=== PATIENT | male | born 1945 | race Caucasian/White ===

== ENCOUNTER 2024-01-07 13:10 | Inpatient (IN) | payer OTHER ==
[2024-01-07] MEDS: SODIUM CHLORIDE 0.9% 500 ML INFUS.BAG IV ONE (14:35)
[2024-01-07 14:46] LABS: BASO % 1.3 % (0-2.0); EOS % 4.1 % (0-4.5); HEMATOCRIT 34.7 % (35.4-49); HEMOGLOBIN 11.6 GM/dL (11.7-16.9); LYMPH % 10.4 % (8-40); MCH 31.6 pg (25.7-33.7); MCHC 33.4 g/dl (32.0-35.9); MEAN CELL VOLUME 94.7 fl (80-96); MEAN PLT VOLUME 9.1 fl (7.5-11.1); MONO % 8.9 % (3.8-10.2); NEUT % 75.3 % (42.8-82.8); PLATELET COUNT 203 10^3/uL (134-434); RBC 3.66 M/mm3 (4.00-5.60); RDW 16.2 % (11.9-15.9); WHITE BLOOD COUNT 7.1 K/mm3 (4.0-10.0)
[2024-01-07 14:52] LABS: INR 0.96 (0.83-1.09); PROTHROMBIN TIME (PATIENT) 10.9 SEC (9.7-13.0)
[2024-01-07 14:55] LABS: ACTIVATED PTT 28.4 SECONDS (25.2-36.5)
[2024-01-07 14:58] LABS: POTASSIUM 3.2 mmol/L (3.5-5.1)
[2024-01-07 15:00] LABS: ALBUMIN 3.4 g/dl (3.4-5.0); CALCIUM 9.1 mg/dL (8.5-10.1)
[2024-01-07 15:01] LABS: BLOOD UREA NITROGEN 63.4 mg/dL (7-18); MAGNESIUM 2.1 mg/dL (1.8-2.4)
[2024-01-07 15:03] LABS: CREATININE 3.4 mg/dL (0.55-1.3)
[2024-01-07 15:05] LABS: TOT PROT 6.4 g/dl (6.4-8.2)
[2024-01-07 15:05] LABS: VENOUS BASE EXCESS 14.4 mmol/L (-2-2); VENOUS O2 SATURATION 31.8 % (70-80); VENOUS PCO2 52.1 mmHg (38-52); VENOUS PH 7.5 (7.310-7.410)
[2024-01-07 15:07] LABS: BILIRUBIN,TOTAL 0.9 mg/dL (0.2-1)
[2024-01-07 15:09] LABS: N-TERMINAL BNP 351.6 pg/ml (5-450)
[2024-01-07 15:58] LABS: URINE APPEARANCE CLEAR; URINE BILIRUBIN NEGATIVE (NEGATIVE); URINE COLOR YELLOW; URINE GLUCOSE (UA) NEGATIVE (NEGATIVE); URINE KETONE NEGATIVE (NEGATIVE); URINE LEUK ESTERASE NEGATIVE (NEGATIVE); URINE NITRITE NEGATIVE (NEGATIVE); URINE PROTEIN TRACE (NEGATIVE)
[2024-01-07] MEDS ORDERED: POTASSIUM CHLORIDE ORAL LIQUID 20 MEQ/15 ML ONE (17:55)
[2024-01-07] MEDS: POTASSIUM CHLORIDE ORAL LIQUID 20 MEQ/15 ML PO ONE (17:56)
[2024-01-07] MEDS: LACTATED RINGERS SOLUTION 1000 ML INFUS.BAG IV ONE (18:05)
[2024-01-07] MEDS ORDERED: PANTOPRAZOLE 40 MG TABLET PO ONE (20:24)
[2024-01-07] MEDS: LACTATED RINGERS SOLUTION 1,000 ML/1,000 ML INFUS.BAG IV SCH (20:24)
[2024-01-07] MEDS: PANTOPRAZOLE 40 MG TABLET PO SCH (20:26)
[2024-01-07] MEDS ORDERED: GABAPENTIN 100 MG CAPSULE ONE (22:02)
[2024-01-07] MEDS ORDERED: HEPARIN NA (PORCINE) 5,000 UNITS/ML 1ML VIAL ONE (22:02)
[2024-01-07] MEDS: GABAPENTIN 100 MG CAPSULE PO SCH (22:08)
[2024-01-07] MEDS: HEPARIN NA (PORCINE) 5,000 UNITS/ML 1ML VIAL SQ SCH (22:08)
[2024-01-07] MEDS ORDERED: MELATONIN 5 MG TABLETS ONE (22:09)
[2024-01-07] MEDS: MELATONIN 5 MG TABLETS PO PRN (22:10)
[2024-01-08] MEDS ORDERED: MAG HYDROX/AL HYDROX/SIMETH 30 ML UNIT-DOSE CUP ONE ×2 (00:24→05:43)
[2024-01-08] MEDS: MAG HYDROX/AL HYDROX/SIMETH -MYLANTA- ORAL SUSPENSION PO SCH (00:29)
[2024-01-08] MEDS ORDERED: GABAPENTIN 100 MG CAPSULE ONE (05:43)
[2024-01-08 07:05] LABS: BASO % 1.5 % (0-2.0); EOS % 8.9 % (0-4.5); HEMATOCRIT 32.8 % (35.4-49); LYMPH % 15.7 % (8-40); MCH 32.4 pg (25.7-33.7); MCHC 33.5 g/dl (32.0-35.9); MEAN CELL VOLUME 96.7 fl (80-96); MEAN PLT VOLUME 9.2 fl (7.5-11.1); NEUT % 64.9 % (42.8-82.8); PLATELET COUNT 166 10^3/uL (134-434); RBC 3.39 M/mm3 (4.00-5.60); RDW 16.6 % (11.9-15.9); WHITE BLOOD COUNT 5.8 K/mm3 (4.0-10.0)
[2024-01-08 07:24] LABS: POTASSIUM 3.3 mmol/L (3.5-5.1)
[2024-01-08 07:36] LABS: CALCIUM 8.2 mg/dL (8.5-10.1)
[2024-01-08 07:37] LABS: BLOOD UREA NITROGEN 47.7 mg/dL (7-18)
[2024-01-08 07:38] LABS: CREATININE 1.9 mg/dL (0.55-1.3)
[2024-01-08] MEDS ORDERED: PANTOPRAZOLE 40 MG TABLET PO ONE (11:38)
[2024-01-08] MEDS ORDERED: POTASSIUM CHLORIDE ORAL LIQUID 20 MEQ/15 ML ONE (11:39)
[2024-01-08] MEDS: POTASSIUM CHLORIDE ORAL LIQUID 20 MEQ/15 ML PO ONE (11:45)
[2024-01-08] MEDS: MEMANTINE HCL 10 MG TABLET (FP) PO SCH (11:45)
[2024-01-08] MEDS: OLANZapine 2.5 MG TABLET PO SCH (11:45)
[2024-01-08] MEDS: POTASSIUM CHLORIDE 10 MEQ in SODIUM CHLORIDE 0.45% 1,000 ML IV SCH (13:21)
[2024-01-08] MEDS: MAG HYDROX/AL HYDROX/SIMETH 30 ML UNIT-DOSE CUP PO SCH (18:11)
[2024-01-09] MEDS: HALOPERIDOL LACTATE 5 MG/ML IM ONE ×2 (01:15→01:49)
[2024-01-09 07:39] LABS: HEMATOCRIT 35.3 % (35.4-49); HEMOGLOBIN 11.8 GM/dL (11.7-16.9); MCH 32.7 pg (25.7-33.7); MCHC 33.5 g/dl (32.0-35.9); MEAN CELL VOLUME 97.4 fl (80-96); MEAN PLT VOLUME 9.4 fl (7.5-11.1); PLATELET COUNT 174 10^3/uL (134-434); RBC 3.62 M/mm3 (4.00-5.60); RDW 15.9 % (11.9-15.9); WHITE BLOOD COUNT 5.7 K/mm3 (4.0-10.0)
[2024-01-09 08:04] LABS: CALCIUM 8.5 mg/dL (8.5-10.1)
[2024-01-09 08:05] LABS: ALBUMIN 3.3 g/dl (3.4-5.0); BLOOD UREA NITROGEN 27.8 mg/dL (7-18)
[2024-01-09 08:08] LABS: CREATININE 1.2 mg/dL (0.55-1.3)
[2024-01-09 08:09] LABS: BILIRUBIN,TOTAL 0.6 mg/dL (0.2-1); TOT PROT 6.3 g/dl (6.4-8.2)
[2024-01-09] MEDS: LISINOPRIL 10 MG TABLET PO SCH (10:38)
[2024-01-09] MEDS: D5-1/2NS+10 MEQ KCL - 10 MEQ/1,000 ML INFUS.BAG IV SCH (18:16)
[2024-01-09] MEDS: LABETALOL HCL 20 MG/4 ML VIAL IVPUSH ONE (22:16)
[2024-01-10 07:25] LABS: HEMATOCRIT 35.2 % (35.4-49); HEMOGLOBIN 11.8 GM/dL (11.7-16.9); MCH 32.5 pg (25.7-33.7); MCHC 33.6 g/dl (32.0-35.9); MEAN CELL VOLUME 96.9 fl (80-96); MEAN PLT VOLUME 9.3 fl (7.5-11.1); PLATELET COUNT 193 10^3/uL (134-434); RBC 3.64 M/mm3 (4.00-5.60); RDW 16.2 % (11.9-15.9); WHITE BLOOD COUNT 6.4 K/mm3 (4.0-10.0)
[2024-01-10 07:53] LABS: POTASSIUM 4.5 mmol/L (3.5-5.1)
[2024-01-10 08:07] LABS: CALCIUM 9.3 mg/dL (8.5-10.1)
[2024-01-10 08:08] LABS: BLOOD UREA NITROGEN 19.3 mg/dL (7-18)
[2024-01-10 15:02] LABS: ARTERIAL BLD GAS O2 SATURATION 96.7 % (95-98); ARTERIAL BLOOD GAS BASE EXCESS -0.9 mmol/L (-2-2); ARTERIAL BLOOD GAS PO2 87.9 mmHg (80-100); ARTERIAL BLOOD GAS pH 7.402 (7.350-7.450)
[2024-01-10] MEDS: OLANZapine 2.5 MG TABLET PO SCH (21:04)
[2024-01-11 07:31] LABS: HEMATOCRIT 30.9 % (35.4-49); HEMOGLOBIN 10.5 GM/dL (11.7-16.9); MCH 32.9 pg (25.7-33.7); MEAN CELL VOLUME 96.9 fl (80-96); MEAN PLT VOLUME 9.4 fl (7.5-11.1); PLATELET COUNT 175 10^3/uL (134-434); RBC 3.19 M/mm3 (4.00-5.60); RDW 16.3 % (11.9-15.9); WHITE BLOOD COUNT 6.3 K/mm3 (4.0-10.0)
[2024-01-11 07:54] LABS: ALBUMIN 2.8 g/dl (3.4-5.0); CALCIUM 8.6 mg/dL (8.5-10.1)
[2024-01-11 07:55] LABS: BLOOD UREA NITROGEN 22.2 mg/dL (7-18)
[2024-01-11 07:57] LABS: CREATININE 1.5 mg/dL (0.55-1.3)
[2024-01-11 07:59] LABS: BILIRUBIN,TOTAL 0.4 mg/dL (0.2-1); TOT PROT 5.5 g/dl (6.4-8.2)
[2024-01-11] MEDS: ENOXAPARIN NA (PORCINE) 40 MG/0.4 ML DISP.SYRIN SQ SCH (11:05)
[2024-01-11] MEDS: SODIUM CHLORIDE 0.45% 1,000 ML IV SCH (13:20)
[2024-01-12 11:59] LABS: HEMATOCRIT 32.6 % (35.4-49); HEMOGLOBIN 11.1 GM/dL (11.7-16.9); MCH 33.6 pg (25.7-33.7); MCHC 34.2 g/dl (32.0-35.9); MEAN CELL VOLUME 98.1 fl (80-96); PLATELET COUNT 180 10^3/uL (134-434); RBC 3.32 M/mm3 (4.00-5.60); RDW 16.2 % (11.9-15.9); WHITE BLOOD COUNT 7.4 K/mm3 (4.0-10.0)
[2024-01-12 12:20] LABS: POTASSIUM 5.4 mmol/L (3.5-5.1)
[2024-01-12 12:26] LABS: BLOOD UREA NITROGEN 20.1 mg/dL (7-18); CREATININE 1.3 mg/dL (0.55-1.3)
[2024-01-12 12:27] LABS: MAGNESIUM 2.4 mg/dL (1.8-2.4)
[2024-01-12 12:28] LABS: CALCIUM 8.7 mg/dL (8.5-10.1)
[2024-01-12 12:30] LABS: PHOSPHOROUS 1.2 mg/dL (2.5-4.9)
[2024-01-12] MEDS: GABAPENTIN 100 MG CAPSULE PO SCH (15:32)
[2024-01-12] MEDS: LABETALOL HCL 5 MG/1 ML (100MG/20 ML VIAL) IVPUSH ONE ×2 (15:34→15:35)
[2024-01-12] MEDS ORDERED: MAG HYDROX/AL HYDROX/SIMETH 30 ML UNIT-DOSE CUP PO SCH (18:00)
[2024-01-12] MEDS: OLANZapine 2.5 MG TABLET PO SCH (22:53)
[2024-01-12] MEDS: MELATONIN 5 MG TABLETS PO PRN (22:53)
[2024-01-13 10:12] LABS: HEMATOCRIT 29.1 % (35.4-49); HEMOGLOBIN 9.9 GM/dL (11.7-16.9); MCH 32.9 pg (25.7-33.7); MEAN CELL VOLUME 96.6 fl (80-96); MEAN PLT VOLUME 8.9 fl (7.5-11.1); PLATELET COUNT 183 10^3/uL (134-434); RBC 3.02 M/mm3 (4.00-5.60); RDW 16.3 % (11.9-15.9); WHITE BLOOD COUNT 6.9 K/mm3 (4.0-10.0)
[2024-01-13 10:36] LABS: POTASSIUM 5.2 mmol/L (3.5-5.1)
[2024-01-13 10:37] LABS: CALCIUM 8.8 mg/dL (8.5-10.1)
[2024-01-13 10:38] LABS: BLOOD UREA NITROGEN 24.6 mg/dL (7-18)
[2024-01-13 10:41] LABS: CREATININE 1.3 mg/dL (0.55-1.3); PHOSPHOROUS 1.7 mg/dL (2.5-4.9)
[2024-01-13] MEDS: LISINOPRIL 10 MG TABLET PO SCH (11:07)
[2024-01-13] MEDS: MEMANTINE HCL 10 MG TABLET (FP) PO SCH (11:07)
[2024-01-13] MEDS: ENOXAPARIN NA (PORCINE) 40 MG/0.4 ML DISP.SYRIN SQ SCH (11:07)
[2024-01-13] MEDS: PANTOPRAZOLE 40 MG TABLET PO SCH (11:07)
[2024-01-14 08:28] LABS: HEMATOCRIT 31.8 % (35.4-49); HEMOGLOBIN 10.6 GM/dL (11.7-16.9); MCH 32.1 pg (25.7-33.7); MCHC 33.4 g/dl (32.0-35.9); MEAN CELL VOLUME 96.2 fl (80-96); PLATELET COUNT 189 10^3/uL (134-434); RDW 16.6 % (11.9-15.9); WHITE BLOOD COUNT 5.4 K/mm3 (4.0-10.0)
[2024-01-14 08:31] LABS: BLOOD UREA NITROGEN 28.6 mg/dL (7-18)
[2024-01-14 08:34] LABS: CREATININE 1.3 mg/dL (0.55-1.3)
[2024-01-14 09:27] LABS: ANISOCYTOSIS 0; MACROCYTOSIS 0
[2024-01-14] MEDS: HALOPERIDOL LACTATE 5 MG/ML IM ONE ×2 (09:58→20:27)
[2024-01-14] MEDS ORDERED: ESCITALOPRAM OXALATE 10 MG TABLET ONE (11:10)
[2024-01-14] MEDS: ESCITALOPRAM OXALATE 20 MG TABLET PO SCH (11:19)
[2024-01-14] MEDS: SODIUM ZIRCONIUM CYCLOSILICATE (LOKELMA) 5 GM PACKET PO SCH (14:29)
[2024-01-14] MEDS: OLANZapine 5 MG TABLET PO SCH (21:05)
[2024-01-14] MEDS: MELATONIN 5 MG TABLETS PO SCH (21:05)
[2024-01-15] MEDS ORDERED: ESCITALOPRAM OXALATE 10 MG TABLET ONE (08:58)
[2024-01-15 11:03] LABS: HEMATOCRIT 29.9 % (35.4-49); HEMOGLOBIN 10.1 GM/dL (11.7-16.9); MCH 32.3 pg (25.7-33.7); MCHC 33.6 g/dl (32.0-35.9); MEAN CELL VOLUME 96.2 fl (80-96); MEAN PLT VOLUME 8.9 fl (7.5-11.1); PLATELET COUNT 192 10^3/uL (134-434); RBC 3.11 M/mm3 (4.00-5.60); RDW 16.3 % (11.9-15.9)
[2024-01-15 11:30] LABS: POTASSIUM 5.2 mmol/L (3.5-5.1)
[2024-01-15 11:34] LABS: CALCIUM 8.5 mg/dL (8.5-10.1)
[2024-01-15 11:35] LABS: BLOOD UREA NITROGEN 35.2 mg/dL (7-18); MAGNESIUM 1.7 mg/dL (1.8-2.4)
[2024-01-15 11:38] LABS: CREATININE 1.3 mg/dL (0.55-1.3); PHOSPHOROUS 3.7 mg/dL (2.5-4.9)
[2024-01-15] MEDS: SODIUM ZIRCONIUM CYCLOSILICATE (LOKELMA) 10 GM PACKET PO SCH (13:17)
[2024-01-15 15:53] VITALS: BMI 20.5
[2024-01-15] MEDS: HALOPERIDOL LACTATE 5 MG/ML IM ONE (21:36)
[2024-01-16 08:00] LABS: HEMATOCRIT 30.3 % (35.4-49); HEMOGLOBIN 10.3 GM/dL (11.7-16.9); MCH 32.8 pg (25.7-33.7); MCHC 34.1 g/dl (32.0-35.9); MEAN CELL VOLUME 96.2 fl (80-96); MEAN PLT VOLUME 8.9 fl (7.5-11.1); MONO % 11.7 % (3.8-10.2); NEUT % 50.3 % (42.8-82.8); PLATELET COUNT 189 10^3/uL (134-434); RBC 3.15 M/mm3 (4.00-5.60); RDW 16.3 % (11.9-15.9); WHITE BLOOD COUNT 4.5 K/mm3 (4.0-10.0)
[2024-01-16 08:04] LABS: POTASSIUM 4.9 mmol/L (3.5-5.1)
[2024-01-16 08:06] LABS: CALCIUM 8.5 mg/dL (8.5-10.1)
[2024-01-16 08:07] LABS: BLOOD UREA NITROGEN 35.4 mg/dL (7-18); MAGNESIUM 1.6 mg/dL (1.8-2.4)
[2024-01-16 08:10] LABS: CREATININE 1.2 mg/dL (0.55-1.3)
[2024-01-16 08:11] LABS: BILIRUBIN,TOTAL 0.5 mg/dL (0.2-1); TOT PROT 5.8 g/dl (6.4-8.2)
[2024-01-16] MEDS: MAGNESIUM OXIDE 400 MG TABLET (FP) PO ONE (10:13)
[2024-01-17] MEDS: HALOPERIDOL LACTATE 5 MG/ML IM ONE (02:12)
[2024-01-17 09:45] LABS: BASO % 2.5 % (0-2.0); EOS % 6.2 % (0-4.5); HEMATOCRIT 30.1 % (35.4-49); HEMOGLOBIN 10.1 GM/dL (11.7-16.9); MCH 32.6 pg (25.7-33.7); MCHC 33.5 g/dl (32.0-35.9); MEAN CELL VOLUME 97.2 fl (80-96); MONO % 10.6 % (3.8-10.2); NEUT % 64.7 % (42.8-82.8); PLATELET COUNT 212 10^3/uL (134-434); RBC 3.09 M/mm3 (4.00-5.60); WHITE BLOOD COUNT 5.7 K/mm3 (4.0-10.0)
[2024-01-17 10:08] LABS: POTASSIUM 4.4 mmol/L (3.5-5.1)
[2024-01-17 10:10] LABS: BLOOD UREA NITROGEN 32.1 mg/dL (7-18); CALCIUM 8.8 mg/dL (8.5-10.1)
[2024-01-17 10:11] LABS: ALBUMIN 3.1 g/dl (3.4-5.0); MAGNESIUM 1.6 mg/dL (1.8-2.4)
[2024-01-17 10:14] LABS: CREATININE 1.1 mg/dL (0.55-1.3)
[2024-01-17 10:15] LABS: BILIRUBIN,TOTAL 0.3 mg/dL (0.2-1); TOT PROT 5.6 g/dl (6.4-8.2)
[2024-01-17] MEDS: MAGNESIUM OXIDE 400 MG TABLET (FP) PO SCH (21:22)
[2024-01-18 09:20] LABS: BASO % 2.6 % (0-2.0); EOS % 7.1 % (0-4.5); HEMATOCRIT 28.2 % (35.4-49); HEMOGLOBIN 9.6 GM/dL (11.7-16.9); LYMPH % 24.9 % (8-40); MCH 32.6 pg (25.7-33.7); MCHC 34.2 g/dl (32.0-35.9); MEAN CELL VOLUME 95.5 fl (80-96); MEAN PLT VOLUME 9.3 fl (7.5-11.1); MONO % 12.1 % (3.8-10.2); NEUT % 53.3 % (42.8-82.8); PLATELET COUNT 205 10^3/uL (134-434); RBC 2.96 M/mm3 (4.00-5.60); RDW 15.8 % (11.9-15.9); WHITE BLOOD COUNT 4.9 K/mm3 (4.0-10.0)
[2024-01-18 09:30] LABS: POTASSIUM 4.5 mmol/L (3.5-5.1)
[2024-01-18 09:35] LABS: CALCIUM 8.2 mg/dL (8.5-10.1)
[2024-01-18 09:36] LABS: ALBUMIN 2.9 g/dl (3.4-5.0); BLOOD UREA NITROGEN 35.6 mg/dL (7-18); MAGNESIUM 1.6 mg/dL (1.8-2.4)
[2024-01-18 09:41] LABS: BILIRUBIN,TOTAL 0.2 mg/dL (0.2-1); TOT PROT 5.6 g/dl (6.4-8.2)
[2024-01-18] MEDS: ACETAMINOPHEN 325 MG TABLET (FP) PO ONE (20:08)
[2024-01-19] MEDS: MULTIVITAMINS (DAILY MVI) TABLET (FP) PO SCH (10:28)
[2024-01-21] MEDS: ACETAMINOPHEN 325 MG TABLET (FP) PO ONE (01:48)
[2024-01-21 09:39] LABS: POTASSIUM 4.3 mmol/L (3.5-5.1)
[2024-01-21 09:45] LABS: ALBUMIN 3.5 g/dl (3.4-5.0); BLOOD UREA NITROGEN 42.8 mg/dL (7-18); MAGNESIUM 1.8 mg/dL (1.8-2.4)
[2024-01-21 09:47] LABS: CREATININE 1.1 mg/dL (0.55-1.3)
[2024-01-21 09:48] LABS: BILIRUBIN,TOTAL 0.2 mg/dL (0.2-1); TOT PROT 6.3 g/dl (6.4-8.2)
[2024-01-21 10:02] LABS: CALCIUM 9.5 mg/dL (8.5-10.1)
[2024-01-22] MEDS: LORazepam 0.5 MG TABLET PO PRN (15:21)
[2024-01-22] MEDS: LORazepam 2 MG/ML SDV VIAL IM ONE (15:57)
[2024-01-22] MEDS: diphenhydrAMINE HCL 25 MG CAPSULE (FP) PO ONE (16:02)
[2024-01-22] MEDS: MAG HYDROX/AL HYDROX/SIMETH 30 ML UNIT-DOSE CUP PO PRN (21:13)
[2024-01-23] MEDS: OLANZapine 10 MG TABLET PO SCH (22:14)
[2024-01-24 09:33] LABS: BASO % 1.1 % (0-2.0); EOS % 2.5 % (0-4.5); HEMOGLOBIN 11.8 GM/dL (11.7-16.9); LYMPH % 8.6 % (8-40); MCH 32.2 pg (25.7-33.7); MCHC 33.7 g/dl (32.0-35.9); MEAN CELL VOLUME 95.6 fl (80-96); MEAN PLT VOLUME 9.5 fl (7.5-11.1); MONO % 8.1 % (3.8-10.2); NEUT % 79.7 % (42.8-82.8); PLATELET COUNT 222 10^3/uL (134-434); RBC 3.66 M/mm3 (4.00-5.60)
[2024-01-24 09:56] LABS: BLOOD UREA NITROGEN 32.8 mg/dL (7-18); CALCIUM 9.8 mg/dL (8.5-10.1); POTASSIUM 4.2 mmol/L (3.5-5.1)
[2024-01-24 09:57] LABS: ALBUMIN 3.9 g/dl (3.4-5.0)
[2024-01-24 09:59] LABS: POTASSIUM 4.3 mmol/L (3.5-5.1)
[2024-01-24 10:00] LABS: CREATININE 0.8 mg/dL (0.55-1.3)
[2024-01-24 10:03] LABS: CALCIUM 9.4 mg/dL (8.5-10.1)
[2024-01-24 10:03] LABS: BILIRUBIN,TOTAL 0.4 mg/dL (0.2-1)
[2024-01-24 10:04] LABS: ALBUMIN 3.6 g/dl (3.4-5.0); BLOOD UREA NITROGEN 31.6 mg/dL (7-18); MAGNESIUM 2.1 mg/dL (1.8-2.4)
[2024-01-24 10:07] LABS: CREATININE 0.8 mg/dL (0.55-1.3)
[2024-01-24 10:10] LABS: BILIRUBIN,TOTAL 0.4 mg/dL (0.2-1)
[2024-01-24 10:11] LABS: TOT PROT 6.8 g/dl (6.4-8.2)
[2024-01-24] MEDS: OLANZapine 5 MG TABLET PO SCH (21:25)
[2024-01-25 08:13] LABS: BASO % 1.1 % (0-2.0); EOS % 1.6 % (0-4.5); HEMATOCRIT 30.8 % (35.4-49); HEMOGLOBIN 10.2 GM/dL (11.7-16.9); LYMPH % 8.8 % (8-40); MCH 31.9 pg (25.7-33.7); MCHC 33.1 g/dl (32.0-35.9); MEAN CELL VOLUME 96.4 fl (80-96); MEAN PLT VOLUME 9.2 fl (7.5-11.1); MONO % 7.7 % (3.8-10.2); NEUT % 80.8 % (42.8-82.8); PLATELET COUNT 230 10^3/uL (134-434); WHITE BLOOD COUNT 13.6 K/mm3 (4.0-10.0)
[2024-01-25 08:20] LABS: POTASSIUM 4.6 mmol/L (3.5-5.1)
[2024-01-25 08:21] LABS: CALCIUM 9.1 mg/dL (8.5-10.1)
[2024-01-25 08:23] LABS: ALBUMIN 3.2 g/dl (3.4-5.0); BLOOD UREA NITROGEN 47.4 mg/dL (7-18); MAGNESIUM 2.2 mg/dL (1.8-2.4)
[2024-01-25 08:27] LABS: BILIRUBIN,TOTAL 0.4 mg/dL (0.2-1); TOT PROT 6.2 g/dl (6.4-8.2)
[2024-01-26 08:02] LABS: POTASSIUM 4.3 mmol/L (3.5-5.1)
[2024-01-26 08:04] LABS: BASO % 1.5 % (0-2.0); EOS % 3.4 % (0-4.5); HEMATOCRIT 29.4 % (35.4-49); HEMOGLOBIN 9.8 GM/dL (11.7-16.9); LYMPH % 13.2 % (8-40); MCHC 33.2 g/dl (32.0-35.9); MEAN CELL VOLUME 96.4 fl (80-96); MEAN PLT VOLUME 9.8 fl (7.5-11.1); NEUT % 71.9 % (42.8-82.8); PLATELET COUNT 204 10^3/uL (134-434); RBC 3.05 M/mm3 (4.00-5.60); RDW 16.1 % (11.9-15.9); WHITE BLOOD COUNT 9.6 K/mm3 (4.0-10.0)
[2024-01-26 08:08] LABS: ALBUMIN 3.3 g/dl (3.4-5.0); CALCIUM 8.9 mg/dL (8.5-10.1)
[2024-01-26 08:10] LABS: BLOOD UREA NITROGEN 53.2 mg/dL (7-18); MAGNESIUM 2.3 mg/dL (1.8-2.4)
[2024-01-26 08:13] LABS: CREATININE 1.1 mg/dL (0.55-1.3)
[2024-01-26 08:14] LABS: BILIRUBIN,TOTAL 0.4 mg/dL (0.2-1); TOT PROT 6.3 g/dl (6.4-8.2)
[2024-01-26] MEDS: BACITRACIN ZINC 15 GM TUBE TOPICAL OINTMENT TP SCH (13:09)
[2024-01-26] MEDS: HALOPERIDOL LACTATE 5 MG/ML IM ONE (21:07)
[2024-01-27 08:31] LABS: POTASSIUM 4.3 mmol/L (3.5-5.1)
[2024-01-27 08:34] LABS: BASO % 2.6 % (0-2.0); HEMATOCRIT 27.2 % (35.4-49); HEMOGLOBIN 9.1 GM/dL (11.7-16.9); LYMPH % 15.2 % (8-40); MCH 32.1 pg (25.7-33.7); MCHC 33.6 g/dl (32.0-35.9); MEAN CELL VOLUME 95.8 fl (80-96); MEAN PLT VOLUME 10.3 fl (7.5-11.1); MONO % 11.9 % (3.8-10.2); NEUT % 65.3 % (42.8-82.8); PLATELET COUNT 208 10^3/uL (134-434); RBC 2.84 M/mm3 (4.00-5.60); RDW 16.1 % (11.9-15.9); WHITE BLOOD COUNT 8.4 K/mm3 (4.0-10.0)
[2024-01-27 08:35] LABS: BLOOD UREA NITROGEN 53.7 mg/dL (7-18); CALCIUM 8.9 mg/dL (8.5-10.1)
[2024-01-27 08:36] LABS: ALBUMIN 3.1 g/dl (3.4-5.0); MAGNESIUM 2.2 mg/dL (1.8-2.4)
[2024-01-27 08:39] LABS: CREATININE 1.1 mg/dL (0.55-1.3)
[2024-01-27 08:41] LABS: BILIRUBIN,TOTAL 0.3 mg/dL (0.2-1)
[2024-01-27] MEDS: HALOPERIDOL LACTATE 5 MG/ML IM ONE (20:37)
[2024-01-28 09:01] LABS: BASO % 2.3 % (0-2.0); EOS % 4.5 % (0-4.5); HEMATOCRIT 26.6 % (35.4-49); LYMPH % 16.1 % (8-40); MCH 31.9 pg (25.7-33.7); MCHC 33.9 g/dl (32.0-35.9); MEAN CELL VOLUME 94.1 fl (80-96); MEAN PLT VOLUME 9.6 fl (7.5-11.1); MONO % 10.6 % (3.8-10.2); NEUT % 66.5 % (42.8-82.8); PLATELET COUNT 231 10^3/uL (134-434); RBC 2.82 M/mm3 (4.00-5.60); RDW 15.8 % (11.9-15.9); WHITE BLOOD COUNT 6.8 K/mm3 (4.0-10.0)
[2024-01-28 09:22] LABS: POTASSIUM 4.6 mmol/L (3.5-5.1)
[2024-01-28 09:29] LABS: ALBUMIN 3.4 g/dl (3.4-5.0); BLOOD UREA NITROGEN 50.5 mg/dL (7-18); MAGNESIUM 2.3 mg/dL (1.8-2.4)
[2024-01-28 09:31] LABS: CREATININE 1.2 mg/dL (0.55-1.3)
[2024-01-28 09:33] LABS: BILIRUBIN,TOTAL 0.4 mg/dL (0.2-1); TOT PROT 6.3 g/dl (6.4-8.2)
[2024-01-28 23:56] VITALS: RESP 18
[2024-01-29 09:32] LABS: BASO % 2.2 % (0-2.0); EOS % 6.6 % (0-4.5); HEMATOCRIT 27.9 % (35.4-49); HEMOGLOBIN 9.4 GM/dL (11.7-16.9); LYMPH % 17.7 % (8-40); MCHC 33.5 g/dl (32.0-35.9); MEAN CELL VOLUME 95.4 fl (80-96); MEAN PLT VOLUME 9.5 fl (7.5-11.1); MONO % 10.7 % (3.8-10.2); NEUT % 62.8 % (42.8-82.8); PLATELET COUNT 251 10^3/uL (134-434); RBC 2.93 M/mm3 (4.00-5.60); RDW 15.7 % (11.9-15.9); WHITE BLOOD COUNT 7.2 K/mm3 (4.0-10.0)
[2024-01-29 09:46] LABS: POTASSIUM 4.4 mmol/L (3.5-5.1)
[2024-01-29 09:56] LABS: CALCIUM 9.1 mg/dL (8.5-10.1)
[2024-01-29 09:57] LABS: ALBUMIN 3.4 g/dl (3.4-5.0); BLOOD UREA NITROGEN 48.4 mg/dL (7-18)
[2024-01-29 10:00] LABS: CREATININE 0.9 mg/dL (0.55-1.3)
[2024-01-29 10:01] LABS: BILIRUBIN,TOTAL 0.4 mg/dL (0.2-1); TOT PROT 6.7 g/dl (6.4-8.2)
[2024-01-29] MEDS: THIAMINE 100 MG TABLET PO SCH (16:35)
[2024-01-29] MEDS: OLANZapine 5 MG TABLET PO SCH (16:35)
[2024-01-29] MEDS: HALOPERIDOL LACTATE 5 MG/ML IM ONE (20:13)
[2024-01-30] MEDS: OLANZapine 5 MG TABLET PO SCH (14:39)
[2024-01-30] MEDS: LORazepam 0.5 MG TABLET PO PRN (19:16)
[2024-01-31 08:28] LABS: BASO % 3.1 % (0-2.0); EOS % 6.8 % (0-4.5); HEMATOCRIT 28.9 % (35.4-49); HEMOGLOBIN 9.6 GM/dL (11.7-16.9); LYMPH % 16.8 % (8-40); MCH 31.6 pg (25.7-33.7); MCHC 33.3 g/dl (32.0-35.9); MEAN CELL VOLUME 94.9 fl (80-96); MEAN PLT VOLUME 9.2 fl (7.5-11.1); MONO % 8.5 % (3.8-10.2); NEUT % 64.8 % (42.8-82.8); PLATELET COUNT 242 10^3/uL (134-434); RBC 3.04 M/mm3 (4.00-5.60); RDW 15.6 % (11.9-15.9); WHITE BLOOD COUNT 6.6 K/mm3 (4.0-10.0)
[2024-01-31 09:27] LABS: POTASSIUM 3.8 mmol/L (3.5-5.1)
[2024-01-31 09:28] LABS: MAGNESIUM 2.1 mg/dL (1.8-2.4)
[2024-01-31 09:31] LABS: PHOSPHOROUS 3.9 mg/dL (2.5-4.9)
[2024-01-31 09:32] LABS: POTASSIUM 3.8 mmol/L (3.5-5.1)
[2024-01-31 09:35] LABS: CALCIUM 9.1 mg/dL (8.5-10.1)
[2024-01-31 09:36] LABS: ALBUMIN 3.2 g/dl (3.4-5.0); BLOOD UREA NITROGEN 35.1 mg/dL (7-18)
[2024-01-31 09:38] LABS: CREATININE 0.8 mg/dL (0.55-1.3)
[2024-01-31 09:40] LABS: BILIRUBIN,TOTAL 0.4 mg/dL (0.2-1)
[2024-01-31] MEDS: LORazepam 2 MG/ML SDV VIAL IM PRN ×2 (15:02→22:56)
[2024-02-01] MEDS: OLANZapine 10 MG TABLET PO SCH (21:23)
[2024-02-02] MEDS: ONDANSETRON 4 MG/2 ML VIAL IVPUSH ONE (06:02)
[2024-02-02 10:24] LABS: BASO % 1.2 % (0-2.0); EOS % 2.6 % (0-4.5); HEMATOCRIT 31.3 % (35.4-49); HEMOGLOBIN 10.1 GM/dL (11.7-16.9); LYMPH % 11.8 % (8-40); MCH 30.6 pg (25.7-33.7); MCHC 32.2 g/dl (32.0-35.9); MEAN CELL VOLUME 95.1 fl (80-96); MEAN PLT VOLUME 9.3 fl (7.5-11.1); MONO % 7.6 % (3.8-10.2); NEUT % 76.8 % (42.8-82.8); PLATELET COUNT 326 10^3/uL (134-434); RBC 3.29 M/mm3 (4.00-5.60); RDW 15.8 % (11.9-15.9); WHITE BLOOD COUNT 9.8 K/mm3 (4.0-10.0)
[2024-02-02 10:54] LABS: POTASSIUM 4.4 mmol/L (3.5-5.1)
[2024-02-02 11:11] LABS: ALBUMIN 3.7 g/dl (3.4-5.0); BLOOD UREA NITROGEN 52.3 mg/dL (7-18); CALCIUM 9.4 mg/dL (8.5-10.1)
[2024-02-02 11:12] LABS: MAGNESIUM 2.2 mg/dL (1.8-2.4)
[2024-02-02 11:13] LABS: CREATININE 1.3 mg/dL (0.55-1.3)
[2024-02-02 11:16] LABS: BILIRUBIN,TOTAL 0.3 mg/dL (0.2-1)
[2024-02-02 16:03] VITALS: BP 125/63; PULSE 100; TEMP 99
[2024-02-02] MEDS ORDERED: HEPARIN NA (PORCINE) 5,000 UNITS/ML 1ML VIAL SQ SCH (22:00)
== END 2024-02-02 17:28 | DRG 682 ==
LOC: JER 13:10 → UNDOADMOB 17:54 → INTOOBSV 17:54 → JERBED 17:54 → J4W 01-08 16:22 → OBSVTOIN 01-09 13:25 → J8W 01-12 13:29
PROVIDERS: ADMIT Internal Medicine; ATTEND Nurse Practitioner Family
DX: N17.9 Acute kidney failure, unspecified (principal); E43 Unspecified severe protein-calorie malnutrition; E87.1 Hypo-osmolality and hyponatremia; T74.91XA Unspecified adult maltreatment, confirmed, initial encounter; F02.811 Dementia in other diseases classified elsewhere, unspecified severity, with agitation; R55 Syncope and collapse; E78.5 Hyperlipidemia, unspecified; K21.9 Gastro-esophageal reflux disease without esophagitis; I12.9 Hypertensive chronic kidney disease with stage 1 through stage 4 chronic kidney disease, or unspecified chronic kidney disease; N18.9 Chronic kidney disease, unspecified; G30.9 Alzheimer's disease, unspecified; E86.0 Dehydration; L89.131 Pressure ulcer of right lower back, stage 1; S50.312A Abrasion of left elbow, initial encounter; M48.00 Spinal stenosis, site unspecified; E87.6 Hypokalemia; I95.9 Hypotension, unspecified; W18.30XA Fall on same level, unspecified, initial encounter; Y92.238 Other place in hospital as the place of occurrence of the external cause; Y93.9 Activity, unspecified; Y99.9 Unspecified external cause status; Z68.20 Body mass index [BMI] 20.0-20.9, adult
CPT/HCPCS: 0241U-QW; 36415; 36600; 70450-TC; 71045-TC-FY; 71250-TC; 72125-TC; 72170-TC-FY; 76775-TC; 80048; 80053; 81003; 82272; 82607; 82728; 82746; 82803; 82962; 83540; 83550; 83605; 83690; 83735; 83880; 84100; 84132; 84443; 84484; 85025; 85027; 85610; 85730; 86850; 86900; 86901; 87635; 93005; 93010; 93306-TC; 97116-GP; 97162-GP; 99291; G0378; J1644